=== PATIENT | female | born 1995 | race Caucasian/White ===

== ENCOUNTER 2022-04-09 05:54 | Emergency (ER) | payer OTHER ==
[2022-04-09 06:07] VITALS: BP 122/85; RESP 16; TEMP 98; BMI 21.0
[2022-04-09 06:43] VITALS: PULSE 99
== END 2022-04-09 06:56 | disposition home or self-care (01) ==
LOC: FER 05:54
DX: F41.9 Anxiety disorder, unspecified (principal); R07.89 Other chest pain
CPT/HCPCS: 93005; 99283-25